=== PATIENT | male | born 1965 | race Caucasian/White ===

== ENCOUNTER 2016-11-21 09:13 | Inpatient (IN) | payer OTHER ==
--- NOTE | ~2016-11-21 | CN ---
Consultation Report [facility] [address] [place]. [address] NAME: MARTIR HERNANDEZ : 65 STATUS : ADM IN [facility]#: [id number] AGE: 51 ADM/REG DATE : 11/21/16 MR#: [id number] REPORT SERV DATE: 11/25/16 DICTATED BY: BRADY JEREZ DATE: 11/25/16 REPORT STATUS : Draft TRANSCRIBED BY: MODL DATE: 11/25/16 DATE OF CONSULTATION: INDICATIONS: Assistance in management of anticoagulation. 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 He had a bowel perforation requiring colostomy. He was admitted for colostomy takedown/reversal, which he underwent on 11/22/2016. He then had bleeding this morning, and went back to the emergency room. He has had acute kidney injury, the creatinine is now greater than 4, and his hemoglobin dropped from 13 to 6. 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 He is followed by a foundry worker general in [place] and was told he had a normally functioning valve by echo earlier this year. The patient is currently now extubated. Reports some abdominal discomfort, but no chest pain or shortness of breath. He understands his mitral valve to have had normal function in the past. PAST MEDICAL HISTORY: Bowel perforation. Mechanical mitral valve. Normal LV systolic function. SOCIAL HISTORY: No smoking. No alcohol. FAMILY HISTORY: Reviewed and noncontributory. ALLERGIES: NONE KNOWN. HOME MEDICATIONS: Warfarin 11 mg in the evening, and Sudafed. REVIEW OF SYSTEMS: As per the HPI. Otherwise, all other review of systems negative. PHYSICAL EXAMINATION: VITAL SIGNS: Blood pressure 110/70, heart rate is 105, respiratory rate is 18. GENERAL: Appears stated age, no distress. EYES: Sclerae anicteric, no arcus senilis. MOUTH: Oral mucosa moist, lips acyanotic. NECK: Jugular venous pressure normal, no carotid bruits. LUNGS: Clear to auscultation bilaterally, normal inspiratory effort. CARDIAC: Regular rhythm, mild tachycardia with crisp prosthetic heart sounds. ABDOMEN: Soft, nondistended, nontender. EXTREMITIES: No edema. SKIN: Warm and dry. NEURO/PSYCH: Alert and oriented, nonfocal, mood appropriate. LABORATORY DATA: Hemoglobin 6.8, to 13.7 on presentation; white count 13.4; platelets 170. Consultation Report [facility] [place]. [address] NAME: MARTIR HERNANDEZ : 65 STATUS : ADM IN [facility]#: [id number] AGE: 51 ADM/REG DATE : 11/21/16 MR#: [id number] REPORT SERV DATE: 11/25/16 DICTATED BY: BRADY JEREZ DATE: 11/25/16 REPORT STATUS : Draft TRANSCRIBED BY: LYNNE DATE: 11/25/16 INR 2.4. Potassium is 4.6. Creatinine 4.39. Telemetry is sinus tachycardia. IMPRESSION: 1. Status post colostomy reversal, now with hematoma evacuated with exploratory laparotomy and repair of colon. 2. Mechanical mitral gmgbxfdcqb-Nodet-Ssrkwsz-normal left ventricular systolic function. 3. Acute blood loss anemia. RECOMMENDATIONS: Replace red cells. Follow labs. Check INR in a.m. When surgical risk acceptable, would begin IV heparin low dose. Otherwise, if no additional surgery planned this admission, would consider resuming warfarin when acceptable from a surgical standpoint. We will follow. KOBE/LYNEN Brady Jerez M.D. / [id number] CC: Sreedhar Zamora M.D.
--- NOTE | ~2016-11-21 | OP ---
Record Of Operation [facility] [address] [place]. [address] NAME: GIN HERNANDEZ : 65 STATUS : ADM IN [facility]#: [id number] AGE: 51 ADM/REG DATE : 11/21/16 MR#: [id number] REPORT SERV DATE: 11/23/16 DICTATED BY: TED DICKINSON DATE: 11/22/16 REPORT STATUS : Draft TRANSCRIBED BY: MODL DATE: 11/22/16 DATE OF PROCEDURE: 11/22/2016 PREOPERATIVE DIAGNOSIS: History of Haleigh's procedure secondary to colonic perforation. POSTOPERATIVE DIAGNOSIS: History of Haleigh's procedure secondary to colonic perforation. PROCEDURE: Laparoscopic colostomy reversal. ATTENDING SURGEON: Dr. Dickinson. SURGEON: Chuyita Colunga M.D. ANESTHESIA: General. ESTIMATED BLOOD LOSS: 50 mL. COMPLICATIONS: None. SPECIMEN: None. DRAINS: None. IV FLUIDS: 1200 mL of crystalloid. INDICATION FOR PROCEDURE: Mr. Hernandez is a 51-year-old male, who previously underwent Haleigh's procedure for a colonic perforation in June of 2016. He presents to the operating room today for elective reversal of his colostomy. Risks and benefits of surgery were discussed with the patient in detail prior to proceeding, and he has elected to proceed. DESCRIPTION OF PROCEDURE: The patient was taken to the operating room, placed on the operating table in supine position. After induction of general anesthesia, time-out procedure was performed to ensure proper procedure and patient identification. The patient's colostomy site was closed using a purse-string suture. The abdomen was then prepped and draped in the usual sterile fashion. An elliptical skin incision was created at the colostomy site and dissected through the subcutaneous tissues using electrocautery. Once the colon was exposed and circumferentially dissected with Metzenbaum scissors down to the level of the posterior fascia circumferentially, the colon was freed from the fascia. Once adequately freed, it was reduced into the abdomen. The fascial edge was elevated. Local adhesions were lysed using Metzenbaum scissors. Once adequate clearance was obtained, a small wound retractor was placed through the old colostomy site and secured with a Pamela forceps prior to closure of the wound retractor. A 5 mm trocar was placed in the left upper quadrant. The abdomen was then insufflated. The patient was noted to have extensive adhesions throughout the remainder of the abdomen and multiple small bowel adhesions were lysed sharply using scissors to allow additional trocar placement. One additional 5 mm Record Of Operation [facility] [address] [place]. [address] NAME: GIN HERNANDEZ : 65 STATUS : ADM IN PAT#: [id number] AGE: 51 ADM/REG DATE : 11/21/16 MR#: [id number] REPORT SERV DATE: 11/23/16 DICTATED BY: TED DICKINSON DATE: 11/22/16 REPORT STATUS : Draft TRANSCRIBED BY: MODRobe DATE: 11/22/16 trocar was placed in the left lower quadrant to assist with lysis of adhesions. Once adequate clearance was obtained, two additional 5 mm trocars were also placed in the right side of the abdomen, the first in the right mid abdomen, second in the right lower quadrant. The colostomy site which had been reduced into the abdomen was elevated laterally. The white line of Toldt was sharply incised and the colon mobilized to the lateral sidewall. We then directed our attention to the patient's pelvis. The rectal stump was identified and mobilized. Once adequate mobilization of the colon to reach the rectal stump was achieved, anal dilators were passed up to a size of 29 mm without difficulty. At this time, we converted from laparoscopy back through our previous colostomy takedown site. Once again, the colonic end was reduced through the site. The end of the colon was excised sharply with scissors. A purse-string of Prolene suture was placed circumferentially and a 29 mm EEA anvil secured. Once adequately secured, this was reduced into the abdomen. The abdomen was once again insufflated. A 29 mm EEA stapling device was advanced into the rectum under laparoscopic visualization. The spike was deployed. The anvil was secured to the spike and closed. The anastomosis had excellent approximation without evidence of tension at this point, the stapler was fired and removed without difficulty. The donuts were examined and found to have two complete donut. Irrigation was then poured into the pelvis. Insufflation test using rigid sigmoidoscope was performed. There was no evidence of air leak. The scope was then removed. Hemostasis was assured. Prior to removal of the laparoscopic ports, the 5 mm trocars were removed. The abdomen was allowed to collapse. The port sites were visualized through the previous colostomy site and found to be hemostatic. We then proceeded with closure of the posterior fascia with a running 0 Prolene and the anterior fascia was then closed in similar fashion with a running 0 Prolene. A single Vicryl suture was placed in the mid point of the previous colostomy site. All skin incisions were closed with interrupted inverted 4-0 Monocryl and sterile dressings were applied. The patient tolerated the procedure well and was taken to the PACU in stable condition. DICTATED BY: Chuyita Colunga MD JR/LYNNE Sreedhar Dickinson M.D. / [id number] CC: Sreedhar Dickinson M.D.
--- NOTE | ~2016-11-21 | CN ---
Consultation Report [facility] [address] [place]. [address] NAME: GIN HERNANDEZ : 65 STATUS : ADM IN [facility]#: [id number] AGE: 51 ADM/REG DATE : 11/21/16 MR#: [id number] REPORT SERV DATE: 11/26/16 DICTATED BY: SUNNI CHANG DATE: 11/25/16 REPORT STATUS : Draft TRANSCRIBED BY: MODL DATE: 11/25/16 NEPHROLOGY CONSULTATION DATE OF CONSULTATION: 11/25/2016 INDICATION FOR CONSULTATION: Acute kidney injury. 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 He developed perforated viscus in 06/2016, complicated by intraabdominal abscess and has had some recurrent abscesses, requiring percutaneous drainage. He is on anticoagulation for prosthetic mitral valve, which has been in place since age 18, when he developed endocarditis. Following his ostomy reversal, he developed bleeding while on heparin and Coumadin and became hypotensive. His serum creatinine fernanda from 0.9 to 4.39 with decline in urine output, while his hemoglobin fell from 11.6 to 6.8. His systolic blood pressure was in the 80s. He has no symptoms and currently has Sapp catheter in place. He has had no exposure to nephrotoxic agents. PAST MEDICAL HISTORY: 1. 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 2. Perforated sigmoid colon with abdominal abscess in 06/2016 and subsequent percutaneous drainage of recurrent abdominal abscesses. 3. Remote left pleural effusion, requiring thoracentesis in 06/2016. 4. Postop respiratory failure, requiring vent support in 06/2016. 5. Anemia. SOCIAL HISTORY: He is with two children, ages 18 and 19. He is an emergency room physician. Uses no alcohol, tobacco products, or illicit drugs. FAMILY HISTORY: No renal failure. No colon cancer. REVIEW OF SYSTEMS: No shortness of breath, chest pain. Does have some lower abdominal discomfort. He has passed some flatus, following reversal of ostomy. No lower extremity edema, skin rash, seizure activity, or lateralizing weakness. Remainder of 12-point review of systems is negative. PHYSICAL EXAMINATION: GENERAL: Pleasant male, NG tube in place. Alert and appropriate response. VITAL SIGNS: Blood pressure 108/63, temperature 98.3 with T-max of 99, pulse 106, respiratory rate 17. HEENT: Eyes, no scleral icterus. Pupils equal, reactive to light. Extraocular movement intact. Nares with right nostril NG tube in place. No lesions. Throat, no injection. Mucous membranes moist. Consultation Report [place] [address] [facility] [place] [address] NAME: GIN HERNANDEZ : 65 STATUS : ADM IN [facility]#: [id number] AGE: 51 ADM/REG DATE : 11/21/16 MR#: [id number] REPORT SERV DATE: 11/26/16 DICTATED BY: SUNNI CHANG DATE: 11/25/16 REPORT STATUS : Draft TRANSCRIBED BY: LYNNE DATE: 11/25/16 NECK: No thyromegaly, masses, bruits. CHEST/LUNGS: Clear to auscultation and percussion. CARDIAC: Regular tachycardia. Prosthetic mitral valve click noted. No rub. ABDOMEN: Some lower abdominal tenderness. Bowel sounds decreased. No hepatosplenomegaly. : Indwelling Sapp. RECTAL: Not performed. EXTREMITIES: Trace edema. No calf tenderness. DERMIS: No rash. No skin lesions. MUSCULOSKELETAL: No deformity. NEUROLOGIC: Cranial nerves intact. No lateralizing weakness. IMPRESSION: 1. Acute kidney injury secondary to acute tubular necrosis related to shock from hemorrhage. 2. Postop hemorrhage while on Coumadin and heparin therapy for prosthetic mitral valve with acute blood loss anemia. 3. Prosthetic mitral valve, requiring anticoagulation. 4. Status post reversal of colostomy. 5. Remote perforation of sigmoid colon with abdominal abscess, 06/2016. PLAN: 1. Lab. 2. Bumex after first unit packed red blood cells if BP stable. 3. Avoid nephrotoxins. 4. We will follow. EBONY/LYNNE Sunni Chang M.D. / [id number] CC: Sreedhar Zamora M.D.
--- NOTE | ~2016-11-21 | OP ---
Record Of Operation [facility] [address] [place]. [address] NAME: GIN HERNANDEZ : 65 STATUS : ADM IN [facility]#: [id number] AGE: 51 ADM/REG DATE : 11/21/16 MR#: [id number] REPORT SERV DATE: 11/27/16 DICTATED BY: ACE GUTIERREZ DATE: 11/27/16 REPORT STATUS : Draft TRANSCRIBED BY: MODL DATE: 11/27/16 DATE OF PROCEDURE: 11/25/2016 PREOPERATIVE DIAGNOSIS: Abdominal bleed status post colostomy reversal. POSTOPERATIVE DIAGNOSIS: Abdominal bleed status post colostomy reversal. OPERATION PERFORMED: Exploratory laparotomy with evacuation of clot and ligation of small bleeding vessel from the left pelvic sidewall. SURGEON: Ace Gutierrez M.D. EL TEACHER: Patrice Valadez M.D. ESTIMATED BLOOD LOSS: 2 L of clot. ANESTHESIA: General endotracheal anesthesia. INDICATIONS FOR PROCEDURE: Mr. Hernandez is a 51-year-old, who is three days out from a colostomy reversal. He has an aortic valve that has been anticoagulated. He has developed an intraabdominal bleed. He is brought to the operating room today for evacuation of clot and surgical treatment of bleeding. DESCRIPTION OF OPERATION: After appropriate sedation, the patient was prepped and draped in proper sterile fashion. A lower midline incision was performed and a wound protector was placed in the abdomen. Upon entering the abdomen, there was a large amount of clot. This was gently evacuated. We then irrigated out the abdomen. We examined the right side of the abdomen and the abdominal wall where the previous trocars were placed. There was no evidence of bleeding. There was no evidence of bleeding from the previous colostomy site. We examined the mesentery. There was no evidence of bleeding. Along the left pelvic sidewall, however, just above the iliac vessels, there was a very small arterial bleed. This was suture ligated with a 3-0 silk suture. We then copiously irrigated out the abdomen. We looked for any evidence of further bleeding, there was none. At this point, I felt like our site of bleeding was found. We placed a 19-Dominican drain into the pelvis and brought up the right lateral sidewall. The fascia was closed using a running #1 looped PDS suture. The skin was closed using simone. Dressings were placed. The patient was taken to recovery room in satisfactory condition. HANNA/LYNNE Ace Gutierrez M.D. / [id number] Record Of [address] [address] NAME: GIN HERNANDEZ : 65 STATUS : ADM IN PAT#: [id number] AGE: 51 ADM/REG DATE : 11/21/16 MR#: [id number] REPORT SERV DATE: 11/27/16 DICTATED BY: ACE GUTIERREZ DATE: 11/27/16 REPORT STATUS : Draft TRANSCRIBED BY: LYNNE DATE: 11/27/16 CC: Sreedhar Zamora M.D.
--- NOTE | ~2016-11-21 | DS ---
Discharge Summary [facility] [address] [place]. [address] NAME: GIN HERNANDEZ : 65 STATUS : DIS IN PAT#: [id number] AGE: 51 ADM/REG DATE : 11/21/16 MR#: [id number] REPORT SERV DATE: 12/13/16 DICTATED BY: TED DICKINSON DATE: 12/13/16 REPORT STATUS : Draft TRANSCRIBED BY: MODRobe DATE: 12/13/16 Data Collection from hospitalization DISCHARGE DIAGNOSES: 1. History of Haleigh's procedure secondary to colonic perforation. 2. Anemia. 3. History of endocarditis with prosthetic mitral valve. CONSULTATIONS: 1. Brady Jerez M.D. 2. Ryan Edmonds M.D. PROCEDURES: 1. Laparoscopic colostomy reversal, 11/22/2016. 2. Exploratory laparotomy with evacuation of clot and ligation of small bleeding vessel from the left pelvic sidewall, 11/25/2016. 3. CT scan of the abdomen and pelvis without contrast, 11/25/2016. DISCHARGE MEDICATIONS: Coumadin 11 mg at bedtime. CONDITION ON DISCHARGE: Stable. DISPOSITION: The patient was discharged home on a regular diet with activities as instructed. He would follow up with me on 12/10/2016, and would follow up with Dr. Cervantes two to three days following discharge. HOSPITAL COURSE: This is a 51-year-old man who had previously undergone a Haleigh's procedure for colonic perforation in 06/2016. He was ready to proceed with elective reversal of his colostomy. He was admitted to the hospital at this time for further evaluation and treatment. Upon admission, he was taken to the operating room where he underwent the above-mentioned procedure. He tolerated this well. There were no complications. On postop day 1, his abdomen was distended. His incisions were clean, dry, and intact. Clear liquids were going to began. He was encouraged to mobilize. On 11/24/2016, he was awake and alert. He did complain of some nausea. NG tube had been in place. He had decreased urine output. Heparin was being held for now. Creatinine level increased. Urine output had decreased. His creatinine level was now 2.38. He was transfused. On 11/25/2016, he was seen in consultation by Dr. Ryan Edmonds. We have been asked to see the patient regarding acute kidney injury. He had no symptoms and currently, his Sapp catheter was in place. He has had no exposure to nephrotoxic agents. His acute kidney injury was felt secondary to acute tubular necrosis related to shock from hemorrhage. The patient had postop hemorrhage while on Coumadin and heparin therapy for prosthetic mitral valve with acute blood loss anemia. He has a history of perforation of the sigmoid colon with abdominal abscess in 06/2016. Bumex was going to be given after the first unit of packed red blood cells if his blood pressure was stable. We would avoid nephrotoxins. He was also seen by Dr. Brady Jerez for assistance in management of anticoagulation. The patient did report having some abdominal discomfort, but no chest pain or shortness of breath. INR level was 2.4. Discharge Summary [address] [address] NAME: GIN HERNANDEZ : 65 STATUS : DIS IN PAT#: [id number] AGE: 51 ADM/REG DATE : 11/21/16 MR#: [id number] REPORT SERV DATE: 12/13/16 DICTATED BY: TED DICKINSON DATE: 12/13/16 REPORT STATUS : Draft TRANSCRIBED BY: MODL DATE: 12/13/16 Potassium was 4.6. White count was 13.4. Red cells were replaced. When his surgical risk was acceptable, we would begin IV heparin at a low dose. If no additional surgery was planned during this admission, we would consider resuming warfarin when acceptable from a surgical standpoint. CT scan of the abdomen and pelvis without contrast was performed. The patient was three days out from his colostomy reversal. He had developed an intraabdominal bleed. It was felt that he would need to undergo evacuation of clots and surgical treatment of this bleeding. He was taken back to the operating room where he underwent the above- mentioned procedure by Dr. Gutierrez. He tolerated this well, and there were no complications. On 11/26/2016, INR level was 1.7. He said he had some rattling in his chest. He had no chest pain. It was felt that we would need to resume anticoagulation as soon as possible. He had no new complaints. The NG tube was still in place. Creatinine level was decreasing. He had good urine output. IV fluids were decreased. O2 saturation was 99% on 15 L. Sapp catheter was discontinued. Heparin was going to be restarted. We were also going to restart Coumadin. He had no complaints of chest pain or shortness of breath. Acute kidney injury was improving. A dose of Lasix was continued. On 11/28/2016, he had no new complaints. He was tolerating oral intake. We planned on increasing his heparin. INR level was 1.5. On 11/30, INR level was now therapeutic. He did have a bowel movement. His drain was going to be removed. Coumadin was continued. INR level was 1.3. He said he was feeling well. On 12/02, INR level was 1.8. He was in no acute distress. His abdomen was soft. He continued to progress. Discharge planning was performed. INR level was 2. On 12/04/2016, his vital signs were stable, and he was afebrile. His incisions were clean, dry, and intact. Discharge instructions were given. Due to his improved and stable condition, he was discharged home with the above-stated instructions. Information collected by: Dyan Jones I submit the above information as my discharge summary. TG/MODL Sreedhar Dickinson M.D. / [id number] CC: Noah Vogel M.D. Gregory Keith Bruce, M.D.
[~2016-11-21 09:13] MED LIST: AUG875 PO; COUMADIN10 MG PO; FERROUS GLUC324 MG PO; PERCOCET1 TA2 PO; ZOSYN375 IV
[2016-11-21 10:55] LABS: BASOPHILS 0.5 %; BASOPHILS ABSOLUTE 0.03 10/3/uL (0.0-0.16); EOSINOPHILS 1.8 %; IMMATURE GRANULOCYTES 0.2 %; IMMATURE GRANULOCYTES ABSOLUTE 0.01 10/3/uL (0.0-0.11); LYMPHOCYTES 19.7 %; MEAN CORPUSCULAR HEMOGLOB 28.6 pg (26.0-34.0); MEAN PLATELET VOLUME 10.5 fL (9.2-13.0); MONOCYTES 8.6 %; MONOCYTES ABSOLUTE 0.48 10/3/uL (0.21-1.20); NEUTROPHILS 69.2 %; NEUTROPHILS ABSOLUTE 3.86 10/3/uL (2.02-8.40); PLATELET COUNT 239 10/3/uL (150-400); RBC DISTRIBUTION WIDTH 14.3 % (12.0-16.0); WHITE BLOOD CELLS 5.6 10/3/uL (4.5-10.5)
[2016-11-21 10:57] LABS: HEMATOCRIT 40.3 % (40.0-51.0); HEMOGLOBIN 13.7 g/dL (13.6-17.8); MANUAL DIFF NO %; MEAN CORPUSCULAR VOLUME 84.1 fL (80-100); RED CELL COUNT 4.79 10/6/uL (4.7-6.1)
[2016-11-21 11:13] LABS: CALCIUM, SERUM 8.7 MG/DL (8.5-10.4); CHLORIDE, SERUM 108 MMOL/L (96-112); CO2 (CARBON DIOXIDE) 26 MMOL/L (24-34); CREATININE 0.97 MG/DL (0.70-1.30); GFR AFRICAN AMERICAN 104 ML/MIN (>=60); GFR NON AFRICAN AMERICAN 90 ML/MIN (>=60); GLUCOSE, SERUM 88 MG/DL (60-99); SODIUM, SERUM 139 MMOL/L (135-148)
[2016-11-21 11:14] LABS: BUN (BLOOD UREA NITROGEN) 18 MG/DL (6-23)
[2016-11-21 11:15] LABS: POTASSIUM, SERUM 5.1 MMOL/L (3.5-5.3)
[2016-11-21 12:42] LABS: PARTIAL THROMBO TIME 32.9 SEC (22.5-37.2)
[2016-11-21 12:43] LABS: PROTIME (NOT ORD) 22.3 SEC (12.0-14.5)
[2016-11-21] MEDS ORDERED: SUDAFED PO (15:23)
[2016-11-21] MEDS ORDERED: C1 PO (15:25)
[2016-11-22 03:29] LABS: BASOPHILS 0.5 %; BASOPHILS ABSOLUTE 0.02 10/3/uL (0.0-0.16); EOSINOPHILS 2.3 %; HEMATOCRIT 37.8 % (40.0-51.0); LYMPHOCYTES 29.2 %; LYMPHOCYTES ABSOLUTE 1.28 10/3/uL (0.67-4.30); MANUAL DIFF NO %; MEAN CORPUS HGB CONC 34.4 g/dL (32.0-36.0); MEAN CORPUSCULAR HEMOGLOB 28.5 pg (26.0-34.0); MEAN CORPUSCULAR VOLUME 82.9 fL (80-100); MEAN PLATELET VOLUME 10.3 fL (9.2-13.0); MONOCYTES ABSOLUTE 0.44 10/3/uL (0.21-1.20); NEUTROPHILS ABSOLUTE 2.55 10/3/uL (2.02-8.40); PLATELET COUNT 213 10/3/uL (150-400); RBC DISTRIBUTION WIDTH 14.3 % (12.0-16.0); RED CELL COUNT 4.56 10/6/uL (4.7-6.1); WHITE BLOOD CELLS 4.4 10/3/uL (4.5-10.5)
[2016-11-22 03:43] LABS: CALCIUM, SERUM 8.4 MG/DL (8.5-10.4); CHLORIDE, SERUM 108 MMOL/L (96-112); CO2 (CARBON DIOXIDE) 27 MMOL/L (24-34); CREATININE 0.91 MG/DL (0.70-1.30); GFR AFRICAN AMERICAN 113 ML/MIN (>=60); GFR NON AFRICAN AMERICAN 97 ML/MIN (>=60); GLUCOSE, SERUM 91 MG/DL (60-99); SODIUM, SERUM 143 MMOL/L (135-148)
[2016-11-22 03:44] LABS: BUN (BLOOD UREA NITROGEN) 12 MG/DL (6-23); POTASSIUM, SERUM 3.7 MMOL/L (3.5-5.3)
[2016-11-23 06:16] LABS: BASOPHILS 0.1 %; BASOPHILS ABSOLUTE 0.01 10/3/uL (0.0-0.16); EOSINOPHILS 0 %; HEMOGLOBIN 11.6 g/dL (13.6-17.8); IMMATURE GRANULOCYTES 0.2 %; IMMATURE GRANULOCYTES ABSOLUTE 0.04 10/3/uL (0.0-0.11); LYMPHOCYTES 3.9 %; MEAN CORPUS HGB CONC 34.3 g/dL (32.0-36.0); MEAN CORPUSCULAR HEMOGLOB 28.8 pg (26.0-34.0); MEAN CORPUSCULAR VOLUME 83.9 fL (80-100); MEAN PLATELET VOLUME 10.7 fL (9.2-13.0); MONOCYTES ABSOLUTE 1.09 10/3/uL (0.21-1.20); NEUTROPHILS 89.8 %; NEUTROPHILS ABSOLUTE 16.22 10/3/uL (2.02-8.40); PLATELET COUNT 259 10/3/uL (150-400); RBC DISTRIBUTION WIDTH 14.1 % (12.0-16.0); RED CELL COUNT 4.03 10/6/uL (4.7-6.1)
[2016-11-23 06:17] LABS: HEMATOCRIT 33.8 % (40.0-51.0); MANUAL DIFF NO %; WHITE BLOOD CELLS 18.1 10/3/uL (4.5-10.5)
[2016-11-23 06:27] LABS: INTERNATIONAL NORMAL RATI 1.3 UNITS (-)
[2016-11-23 06:29] LABS: PARTIAL THROMBO TIME 87.5 SEC (22.5-37.2); PROTIME (NOT ORD) 16.5 SEC (12.0-14.5)
[2016-11-23 06:36] LABS: BUN (BLOOD UREA NITROGEN) 13 MG/DL (6-23); CALCIUM, SERUM 8.1 MG/DL (8.5-10.4); CHLORIDE, SERUM 103 MMOL/L (96-112); CO2 (CARBON DIOXIDE) 26 MMOL/L (24-34); CREATININE 0.91 MG/DL (0.70-1.30); GFR AFRICAN AMERICAN 113 ML/MIN (>=60); GFR NON AFRICAN AMERICAN 97 ML/MIN (>=60); POTASSIUM, SERUM 4.1 MMOL/L (3.5-5.3); SODIUM, SERUM 141 MMOL/L (135-148)
[2016-11-23 06:40] LABS: GLUCOSE, SERUM 166 MG/DL (60-99)
[2016-11-24 08:17] LABS: BASOPHILS 0 %; BASOPHILS ABSOLUTE 0.01 10/3/uL (0.0-0.16); EOSINOPHILS 0 %; IMMATURE GRANULOCYTES 0.4 %; IMMATURE GRANULOCYTES ABSOLUTE 0.08 10/3/uL (0.0-0.11); LYMPHOCYTES 3.3 %; LYMPHOCYTES ABSOLUTE 0.67 10/3/uL (0.67-4.30); MEAN CORPUS HGB CONC 33.5 g/dL (32.0-36.0); MEAN CORPUSCULAR HEMOGLOB 28.7 pg (26.0-34.0); MEAN CORPUSCULAR VOLUME 85.7 fL (80-100); MEAN PLATELET VOLUME 10.9 fL (9.2-13.0); MONOCYTES 6.6 %; MONOCYTES ABSOLUTE 1.35 10/3/uL (0.21-1.20); NEUTROPHILS 89.7 %; NEUTROPHILS ABSOLUTE 18.38 10/3/uL (2.02-8.40); PLATELET COUNT 252 10/3/uL (150-400); RBC DISTRIBUTION WIDTH 14.5 % (12.0-16.0); WHITE BLOOD CELLS 20.5 10/3/uL (4.5-10.5)
[2016-11-24 08:20] LABS: HEMATOCRIT 23.9 % (40.0-51.0); MANUAL DIFF NO %; RED CELL COUNT 2.79 10/6/uL (4.7-6.1)
[2016-11-24 08:23] LABS: INTERNATIONAL NORMAL RATI 1.9 UNITS (-)
[2016-11-24 08:26] LABS: PROTIME (NOT ORD) 21.7 SEC (12.0-14.5)
[2016-11-24 08:30] LABS: CALCIUM, SERUM 7.8 MG/DL (8.5-10.4); CHLORIDE, SERUM 105 MMOL/L (96-112); CO2 (CARBON DIOXIDE) 22 MMOL/L (24-34); POTASSIUM, SERUM 4.1 MMOL/L (3.5-5.3); SODIUM, SERUM 141 MMOL/L (135-148)
[2016-11-24 08:31] LABS: BUN (BLOOD UREA NITROGEN) 17 MG/DL (6-23); CREATININE 2.38 MG/DL (0.70-1.30); GFR AFRICAN AMERICAN 35 ML/MIN (>=60); GFR NON AFRICAN AMERICAN 30 ML/MIN (>=60); GLUCOSE, SERUM 214 MG/DL (60-99)
[2016-11-24 13:20] LABS: CALCIUM, SERUM 7.3 MG/DL (8.5-10.4); CHLORIDE, SERUM 104 MMOL/L (96-112); CO2 (CARBON DIOXIDE) 24 MMOL/L (24-34); GFR AFRICAN AMERICAN 26 ML/MIN (>=60); GFR NON AFRICAN AMERICAN 22 ML/MIN (>=60); GLUCOSE, SERUM 225 MG/DL (60-99); POTASSIUM, SERUM 4.2 MMOL/L (3.5-5.3); SODIUM, SERUM 141 MMOL/L (135-148)
[2016-11-24 13:21] LABS: BUN (BLOOD UREA NITROGEN) 21 MG/DL (6-23); CREATININE 3.11 MG/DL (0.70-1.30)
[2016-11-25 00:12] LABS: HEMOGLOBIN 7.9 g/dL (13.6-17.8)
[2016-11-25 00:18] LABS: HEMATOCRIT 22.1 % (40.0-51.0)
[2016-11-25 05:07] LABS: BASOPHILS 0.1 %; BASOPHILS ABSOLUTE 0.01 10/3/uL (0.0-0.16); EOSINOPHILS 0 %; IMMATURE GRANULOCYTES 0.2 %; IMMATURE GRANULOCYTES ABSOLUTE 0.03 10/3/uL (0.0-0.11); LYMPHOCYTES 11.7 %; LYMPHOCYTES ABSOLUTE 1.57 10/3/uL (0.67-4.30); MEAN CORPUS HGB CONC 34.2 g/dL (32.0-36.0); MEAN CORPUSCULAR HEMOGLOB 28.8 pg (26.0-34.0); MEAN CORPUSCULAR VOLUME 84.3 fL (80-100); MEAN PLATELET VOLUME 10.8 fL (9.2-13.0); MONOCYTES 7.3 %; MONOCYTES ABSOLUTE 0.98 10/3/uL (0.21-1.20); NEUTROPHILS 80.7 %; NEUTROPHILS ABSOLUTE 10.78 10/3/uL (2.02-8.40); RBC DISTRIBUTION WIDTH 14.8 % (12.0-16.0); RED CELL COUNT 2.36 10/6/uL (4.7-6.1); WHITE BLOOD CELLS 13.4 10/3/uL (4.5-10.5)
[2016-11-25 05:08] LABS: HEMOGLOBIN 6.8 g/dL (13.6-17.8)
[2016-11-25 05:09] LABS: HEMATOCRIT 19.9 % (40.0-51.0); PLATELET COUNT 170 10/3/uL (150-400)
[2016-11-25 05:10] LABS: MANUAL DIFF NO %
[2016-11-25 05:14] LABS: INTERNATIONAL NORMAL RATI 2.4 UNITS (-); PARTIAL THROMBO TIME 35.8 SEC (22.5-37.2)
[2016-11-25 05:19] LABS: PROTIME (NOT ORD) 25.6 SEC (12.0-14.5)
[2016-11-25 05:29] LABS: BUN (BLOOD UREA NITROGEN) 29 MG/DL (6-23); CALCIUM, SERUM 7.2 MG/DL (8.5-10.4); CHLORIDE, SERUM 105 MMOL/L (96-112); CO2 (CARBON DIOXIDE) 25 MMOL/L (24-34); CREATININE 4.39 MG/DL (0.70-1.30); GFR AFRICAN AMERICAN 17 ML/MIN (>=60); GFR NON AFRICAN AMERICAN 15 ML/MIN (>=60); GLUCOSE, SERUM 125 MG/DL (60-99); POTASSIUM, SERUM 4.6 MMOL/L (3.5-5.3); SODIUM, SERUM 141 MMOL/L (135-148)
[2016-11-25 11:06] LABS: MICROALBUMIN, RANDOM URINE 32.9 MG/DL
[2016-11-25 12:45] LABS: BASOPHILS 0.1 %; BASOPHILS ABSOLUTE 0.01 10/3/uL (0.0-0.16); EOSINOPHILS 0.1 %; EOSINOPHILS ABSOLUTE 0.01 10/3/uL (0.0-0.53); HEMATOCRIT 21.5 % (40.0-51.0); HEMOGLOBIN 7.6 g/dL (13.6-17.8); IMMATURE GRANULOCYTES 0.3 %; IMMATURE GRANULOCYTES ABSOLUTE 0.03 10/3/uL (0.0-0.11); LYMPHOCYTES 6.9 %; LYMPHOCYTES ABSOLUTE 0.66 10/3/uL (0.67-4.30); MEAN CORPUS HGB CONC 35.3 g/dL (32.0-36.0); MEAN CORPUSCULAR HEMOGLOB 30.3 pg (26.0-34.0); MEAN CORPUSCULAR VOLUME 85.7 fL (80-100); MEAN PLATELET VOLUME 10.5 fL (9.2-13.0); MONOCYTES 7.1 %; MONOCYTES ABSOLUTE 0.68 10/3/uL (0.21-1.20); NEUTROPHILS 85.5 %; PLATELET COUNT 131 10/3/uL (150-400); RBC DISTRIBUTION WIDTH 14.9 % (12.0-16.0); RED CELL COUNT 2.51 10/6/uL (4.7-6.1); WHITE BLOOD CELLS 9.6 10/3/uL (4.5-10.5)
[2016-11-25 12:47] LABS: MANUAL DIFF NO %
[2016-11-25 12:51] LABS: BUN (BLOOD UREA NITROGEN) 30 MG/DL (6-23); CALCIUM, SERUM 7.2 MG/DL (8.5-10.4); CHLORIDE, SERUM 109 MMOL/L (96-112); CO2 (CARBON DIOXIDE) 28 MMOL/L (24-34); GFR AFRICAN AMERICAN 21 ML/MIN (>=60); GFR NON AFRICAN AMERICAN 18 ML/MIN (>=60); GLUCOSE, SERUM 120 MG/DL (60-99); POTASSIUM, SERUM 4.2 MMOL/L (3.5-5.3); SODIUM, SERUM 145 MMOL/L (135-148)
[2016-11-25 12:52] LABS: CREATININE 3.72 MG/DL (0.70-1.30)
[2016-11-25 13:15] LABS: PARTIAL THROMBO TIME 38.2 SEC (22.5-37.2); PROTIME (NOT ORD) 22.4 SEC (12.0-14.5)
[2016-11-25 17:28] LABS: BASOPHILS 0 %; EOSINOPHILS 0 %; IMMATURE GRANULOCYTES 0.2 %; IMMATURE GRANULOCYTES ABSOLUTE 0.02 10/3/uL (0.0-0.11); LYMPHOCYTES 2.3 %; LYMPHOCYTES ABSOLUTE 0.19 10/3/uL (0.67-4.30); MEAN CORPUS HGB CONC 35.6 g/dL (32.0-36.0); MEAN CORPUSCULAR HEMOGLOB 30.4 pg (26.0-34.0); MEAN CORPUSCULAR VOLUME 85.5 fL (80-100); MEAN PLATELET VOLUME 10.6 fL (9.2-13.0); MONOCYTES 7.2 %; NEUTROPHILS 90.3 %; NEUTROPHILS ABSOLUTE 7.49 10/3/uL (2.02-8.40); PLATELET COUNT 120 10/3/uL (150-400); RBC DISTRIBUTION WIDTH 14.5 % (12.0-16.0); RED CELL COUNT 2.96 10/6/uL (4.7-6.1); WHITE BLOOD CELLS 8.3 10/3/uL (4.5-10.5)
[2016-11-25 17:29] LABS: HEMATOCRIT 25.3 % (40.0-51.0); MANUAL DIFF NO %
[2016-11-25 17:35] LABS: INTERNATIONAL NORMAL RATI 1.6 UNITS (-)
[2016-11-25 17:37] LABS: PROTIME (NOT ORD) 18.5 SEC (12.0-14.5)
[2016-11-25 17:43] LABS: BUN (BLOOD UREA NITROGEN) 30 MG/DL (6-23); CALCIUM, SERUM 7.6 MG/DL (8.5-10.4); CHLORIDE, SERUM 103 MMOL/L (96-112); CO2 (CARBON DIOXIDE) 31 MMOL/L (24-34); CREATININE 3.53 MG/DL (0.70-1.30); GFR AFRICAN AMERICAN 22 ML/MIN (>=60); GFR NON AFRICAN AMERICAN 19 ML/MIN (>=60); GLUCOSE, SERUM 115 MG/DL (60-99); PHOSPHORUS, SERUM 3.4 MG/DL (2.5-4.5); POTASSIUM, SERUM 4.1 MMOL/L (3.5-5.3); SGOT(AST) 21 U/L (5-40); SGPT(ALT) 16 U/L (5-65); SODIUM, SERUM 144 MMOL/L (135-148)
[2016-11-25 17:45] LABS: A/G RATIO 0.9 (0.7-1.9); ALBUMIN 2.8 G/DL (3.5-5.0); ALKALINE PHOSPHATASE 51 U/L (45-117); GLOBULIN 3.2 G/DL (2.5-4.1); TOTAL BILIRUBIN 1.1 MG/DL (0-1.2)
[2016-11-26 03:26] LABS: BASOPHILS 0 %; EOSINOPHILS 0 %; HEMATOCRIT 23.3 % (40.0-51.0); HEMOGLOBIN 8.3 g/dL (13.6-17.8); IMMATURE GRANULOCYTES 0.2 %; IMMATURE GRANULOCYTES ABSOLUTE 0.01 10/3/uL (0.0-0.11); LYMPHOCYTES 9.2 %; LYMPHOCYTES ABSOLUTE 0.57 10/3/uL (0.67-4.30); MEAN CORPUS HGB CONC 35.6 g/dL (32.0-36.0); MEAN CORPUSCULAR VOLUME 86.9 fL (80-100); MONOCYTES 10.6 %; MONOCYTES ABSOLUTE 0.66 10/3/uL (0.21-1.20); NEUTROPHILS ABSOLUTE 4.97 10/3/uL (2.02-8.40); PLATELET COUNT 122 10/3/uL (150-400); RBC DISTRIBUTION WIDTH 14.7 % (12.0-16.0); RED CELL COUNT 2.68 10/6/uL (4.7-6.1); WHITE BLOOD CELLS 6.2 10/3/uL (4.5-10.5)
[2016-11-26 03:42] LABS: MANUAL DIFF NO %
[2016-11-26 03:48] LABS: ALBUMIN 2.7 G/DL (3.5-5.0); BUN (BLOOD UREA NITROGEN) 30 MG/DL (6-23); CALCIUM, SERUM 7.5 MG/DL (8.5-10.4); CHLORIDE, SERUM 102 MMOL/L (96-112); CO2 (CARBON DIOXIDE) 32 MMOL/L (24-34); GFR AFRICAN AMERICAN 28 ML/MIN (>=60); GFR NON AFRICAN AMERICAN 24 ML/MIN (>=60); GLUCOSE, SERUM 111 MG/DL (60-99); PHOSPHORUS, SERUM 2.9 MG/DL (2.5-4.5); POTASSIUM, SERUM 3.8 MMOL/L (3.5-5.3); SODIUM, SERUM 143 MMOL/L (135-148)
[2016-11-26 03:50] LABS: CREATININE 2.89 MG/DL (0.70-1.30)
[2016-11-26 03:59] LABS: INTERNATIONAL NORMAL RATI 1.7 UNITS (-); PROTIME (NOT ORD) 19.5 SEC (12.0-14.5)
[2016-11-26 04:12] LABS: PROCALCITONIN 0.23 ng/mL (<0.5)
[2016-11-26 14:42] LABS: HEMATOCRIT 24.3 % (40.0-51.0); HEMOGLOBIN 8.4 g/dL (13.6-17.8)
[2016-11-26 15:41] LABS: BUN (BLOOD UREA NITROGEN) 31 MG/DL (6-23); CALCIUM, SERUM 7.7 MG/DL (8.5-10.4); CHLORIDE, SERUM 99 MMOL/L (96-112); CO2 (CARBON DIOXIDE) 34 MMOL/L (24-34); POTASSIUM, SERUM 4.2 MMOL/L (3.5-5.3); SODIUM, SERUM 140 MMOL/L (135-148)
[2016-11-26 15:42] LABS: CREATININE 2.18 MG/DL (0.70-1.30); GFR AFRICAN AMERICAN 39 ML/MIN (>=60); GFR NON AFRICAN AMERICAN 34 ML/MIN (>=60); GLUCOSE, SERUM 88 MG/DL (60-99)
[2016-11-26 18:58] LABS: BASOPHILS 0 %; EOSINOPHILS 0.1 %; EOSINOPHILS ABSOLUTE 0.01 10/3/uL (0.0-0.53); HEMOGLOBIN 8.7 g/dL (13.6-17.8); LYMPHOCYTES 5.4 %; LYMPHOCYTES ABSOLUTE 0.48 10/3/uL (0.67-4.30); MANUAL DIFF NO %; MEAN CORPUS HGB CONC 34.8 g/dL (32.0-36.0); MEAN CORPUSCULAR HEMOGLOB 30.6 pg (26.0-34.0); MEAN PLATELET VOLUME 10.1 fL (9.2-13.0); MONOCYTES 6.9 %; MONOCYTES ABSOLUTE 0.61 10/3/uL (0.21-1.20); NEUTROPHILS 87.6 %; NEUTROPHILS ABSOLUTE 7.77 10/3/uL (2.02-8.40); PLATELET COUNT 150 10/3/uL (150-400); RBC DISTRIBUTION WIDTH 14.8 % (12.0-16.0); RED CELL COUNT 2.84 10/6/uL (4.7-6.1); WHITE BLOOD CELLS 8.9 10/3/uL (4.5-10.5)
[2016-11-26 19:11] LABS: BUN (BLOOD UREA NITROGEN) 30 MG/DL (6-23); CHLORIDE, SERUM 99 MMOL/L (96-112); CO2 (CARBON DIOXIDE) 35 MMOL/L (24-34); CREATININE 2.09 MG/DL (0.70-1.30); GFR AFRICAN AMERICAN 41 ML/MIN (>=60); GFR NON AFRICAN AMERICAN 36 ML/MIN (>=60); GLUCOSE, SERUM 96 MG/DL (60-99); POTASSIUM, SERUM 4.1 MMOL/L (3.5-5.3); SODIUM, SERUM 139 MMOL/L (135-148)
[2016-11-26 22:46] LABS: BUN (BLOOD UREA NITROGEN) 30 MG/DL (6-23); CHLORIDE, SERUM 95 MMOL/L (96-112); CO2 (CARBON DIOXIDE) 35 MMOL/L (24-34); CREATININE 1.97 MG/DL (0.70-1.30); GFR AFRICAN AMERICAN 44 ML/MIN (>=60); GFR NON AFRICAN AMERICAN 38 ML/MIN (>=60); GLUCOSE, SERUM 87 MG/DL (60-99); POTASSIUM, SERUM 3.8 MMOL/L (3.5-5.3); SODIUM, SERUM 138 MMOL/L (135-148)
[2016-11-27 05:03] LABS: BASOPHILS 0 %; EOSINOPHILS 0.7 %; EOSINOPHILS ABSOLUTE 0.05 10/3/uL (0.0-0.53); HEMATOCRIT 26.4 % (40.0-51.0); IMMATURE GRANULOCYTES 0.1 %; IMMATURE GRANULOCYTES ABSOLUTE 0.01 10/3/uL (0.0-0.11); LYMPHOCYTES 8.6 %; LYMPHOCYTES ABSOLUTE 0.62 10/3/uL (0.67-4.30); MEAN CORPUS HGB CONC 34.1 g/dL (32.0-36.0); MEAN CORPUSCULAR HEMOGLOB 30.2 pg (26.0-34.0); MEAN CORPUSCULAR VOLUME 88.6 fL (80-100); MEAN PLATELET VOLUME 10.3 fL (9.2-13.0); MONOCYTES 8.1 %; MONOCYTES ABSOLUTE 0.59 10/3/uL (0.21-1.20); NEUTROPHILS 82.5 %; NEUTROPHILS ABSOLUTE 5.98 10/3/uL (2.02-8.40); PLATELET COUNT 180 10/3/uL (150-400); RBC DISTRIBUTION WIDTH 14.6 % (12.0-16.0); RED CELL COUNT 2.98 10/6/uL (4.7-6.1); WHITE BLOOD CELLS 7.3 10/3/uL (4.5-10.5)
[2016-11-27 05:06] LABS: MANUAL DIFF NO %
[2016-11-27 05:12] LABS: INTERNATIONAL NORMAL RATI 1.6 UNITS (-); PROTIME (NOT ORD) 19.1 SEC (12.0-14.5)
[2016-11-27 05:13] LABS: PARTIAL THROMBO TIME 43.5 SEC (22.5-37.2)
[2016-11-27 05:24] LABS: A/G RATIO 0.7 (0.7-1.9); ALBUMIN 2.6 G/DL (3.5-5.0); ALKALINE PHOSPHATASE 57 U/L (45-117); BUN (BLOOD UREA NITROGEN) 30 MG/DL (6-23); CHLORIDE, SERUM 98 MMOL/L (96-112); CO2 (CARBON DIOXIDE) 33 MMOL/L (24-34); CREATININE 1.65 MG/DL (0.70-1.30); GFR AFRICAN AMERICAN 55 ML/MIN (>=60); GFR NON AFRICAN AMERICAN 47 ML/MIN (>=60); GLUCOSE, SERUM 84 MG/DL (60-99); PHOSPHORUS, SERUM 2.8 MG/DL (2.5-4.5); SGOT(AST) 17 U/L (5-40); SGPT(ALT) 12 U/L (5-65); SODIUM, SERUM 137 MMOL/L (135-148); TOTAL PROTEIN 6.5 G/DL (6.0-8.5)
[2016-11-27 05:38] LABS: GLOBULIN 3.9 G/DL (2.5-4.1)
[2016-11-28 04:44] LABS: BASOPHILS 0.2 %; BASOPHILS ABSOLUTE 0.01 10/3/uL (0.0-0.16); EOSINOPHILS 2.5 %; EOSINOPHILS ABSOLUTE 0.14 10/3/uL (0.0-0.53); HEMATOCRIT 25.4 % (40.0-51.0); HEMOGLOBIN 8.8 g/dL (13.6-17.8); IMMATURE GRANULOCYTES 0.2 %; IMMATURE GRANULOCYTES ABSOLUTE 0.01 10/3/uL (0.0-0.11); LYMPHOCYTES 11.4 %; LYMPHOCYTES ABSOLUTE 0.65 10/3/uL (0.67-4.30); MEAN CORPUS HGB CONC 34.6 g/dL (32.0-36.0); MEAN CORPUSCULAR HEMOGLOB 30.4 pg (26.0-34.0); MEAN CORPUSCULAR VOLUME 87.9 fL (80-100); MEAN PLATELET VOLUME 9.8 fL (9.2-13.0); MONOCYTES 9.7 %; MONOCYTES ABSOLUTE 0.55 10/3/uL (0.21-1.20); NEUTROPHILS ABSOLUTE 4.32 10/3/uL (2.02-8.40); PLATELET COUNT 201 10/3/uL (150-400); RBC DISTRIBUTION WIDTH 14.1 % (12.0-16.0); RED CELL COUNT 2.89 10/6/uL (4.7-6.1); WHITE BLOOD CELLS 5.7 10/3/uL (4.5-10.5)
[2016-11-28 04:46] LABS: MANUAL DIFF NO %
[2016-11-28 04:56] LABS: INTERNATIONAL NORMAL RATI 1.5 UNITS (-); PARTIAL THROMBO TIME 38.4 SEC (22.5-37.2); PROTIME (NOT ORD) 17.5 SEC (12.0-14.5)
[2016-11-28 04:58] LABS: BUN (BLOOD UREA NITROGEN) 27 MG/DL (6-23); CALCIUM, SERUM 8.3 MG/DL (8.5-10.4); CHLORIDE, SERUM 100 MMOL/L (96-112); CO2 (CARBON DIOXIDE) 30 MMOL/L (24-34); CREATININE 1.16 MG/DL (0.70-1.30); GFR AFRICAN AMERICAN 84 ML/MIN (>=60); GFR NON AFRICAN AMERICAN 73 ML/MIN (>=60); GLUCOSE, SERUM 98 MG/DL (60-99); POTASSIUM, SERUM 3.9 MMOL/L (3.5-5.3); SODIUM, SERUM 138 MMOL/L (135-148)
[2016-11-29 04:44] LABS: BASOPHILS 0.2 %; BASOPHILS ABSOLUTE 0.01 10/3/uL (0.0-0.16); EOSINOPHILS 3.5 %; EOSINOPHILS ABSOLUTE 0.18 10/3/uL (0.0-0.53); HEMATOCRIT 26.2 % (40.0-51.0); HEMOGLOBIN 8.9 g/dL (13.6-17.8); IMMATURE GRANULOCYTES 0.2 %; IMMATURE GRANULOCYTES ABSOLUTE 0.01 10/3/uL (0.0-0.11); LYMPHOCYTES 11.5 %; MEAN CORPUSCULAR HEMOGLOB 30.3 pg (26.0-34.0); MEAN CORPUSCULAR VOLUME 89.1 fL (80-100); MEAN PLATELET VOLUME 10.2 fL (9.2-13.0); MONOCYTES 11.7 %; MONOCYTES ABSOLUTE 0.61 10/3/uL (0.21-1.20); NEUTROPHILS 72.9 %; PLATELET COUNT 244 10/3/uL (150-400); RED CELL COUNT 2.94 10/6/uL (4.7-6.1); WHITE BLOOD CELLS 5.2 10/3/uL (4.5-10.5)
[2016-11-29 04:48] LABS: INTERNATIONAL NORMAL RATI 1.2 UNITS (-); MANUAL DIFF NO %; PROTIME (NOT ORD) 15.2 SEC (12.0-14.5)
[2016-11-29 04:49] LABS: PARTIAL THROMBO TIME 48.2 SEC (22.5-37.2)
[2016-11-29 05:06] LABS: CALCIUM, SERUM 8.4 MG/DL (8.5-10.4); CHLORIDE, SERUM 104 MMOL/L (96-112); CO2 (CARBON DIOXIDE) 27 MMOL/L (24-34); CREATININE 1.14 MG/DL (0.70-1.30); GFR AFRICAN AMERICAN 86 ML/MIN (>=60); GFR NON AFRICAN AMERICAN 74 ML/MIN (>=60); GLUCOSE, SERUM 104 MG/DL (60-99); SODIUM, SERUM 139 MMOL/L (135-148)
[2016-11-29 05:09] LABS: BUN (BLOOD UREA NITROGEN) 23 MG/DL (6-23)
[2016-11-30 07:23] LABS: BASOPHILS 0.2 %; BASOPHILS ABSOLUTE 0.01 10/3/uL (0.0-0.16); EOSINOPHILS 4.3 %; EOSINOPHILS ABSOLUTE 0.19 10/3/uL (0.0-0.53); HEMATOCRIT 26.9 % (40.0-51.0); HEMOGLOBIN 9.1 g/dL (13.6-17.8); IMMATURE GRANULOCYTES 0.2 %; IMMATURE GRANULOCYTES ABSOLUTE 0.01 10/3/uL (0.0-0.11); LYMPHOCYTES 19.5 %; LYMPHOCYTES ABSOLUTE 0.87 10/3/uL (0.67-4.30); MEAN CORPUS HGB CONC 33.8 g/dL (32.0-36.0); MEAN CORPUSCULAR HEMOGLOB 30.1 pg (26.0-34.0); MEAN CORPUSCULAR VOLUME 89.1 fL (80-100); MEAN PLATELET VOLUME 9.9 fL (9.2-13.0); MONOCYTES 11.4 %; MONOCYTES ABSOLUTE 0.51 10/3/uL (0.21-1.20); NEUTROPHILS 64.4 %; NEUTROPHILS ABSOLUTE 2.87 10/3/uL (2.02-8.40); PLATELET COUNT 282 10/3/uL (150-400); RBC DISTRIBUTION WIDTH 14.1 % (12.0-16.0); RED CELL COUNT 3.02 10/6/uL (4.7-6.1); WHITE BLOOD CELLS 4.5 10/3/uL (4.5-10.5)
[2016-11-30 07:25] LABS: MANUAL DIFF NO %
[2016-11-30 07:29] LABS: INTERNATIONAL NORMAL RATI 1.3 UNITS (-); PROTIME (NOT ORD) 16.1 SEC (12.0-14.5)
[2016-11-30 07:31] LABS: PARTIAL THROMBO TIME 102.8 SEC (22.5-37.2)
[2016-11-30 07:32] LABS: BUN (BLOOD UREA NITROGEN) 20 MG/DL (6-23); CALCIUM, SERUM 8.2 MG/DL (8.5-10.4); CHLORIDE, SERUM 104 MMOL/L (96-112); CO2 (CARBON DIOXIDE) 27 MMOL/L (24-34); CREATININE 1.07 MG/DL (0.70-1.30); GFR AFRICAN AMERICAN 93 ML/MIN (>=60); GFR NON AFRICAN AMERICAN 80 ML/MIN (>=60); GLUCOSE, SERUM 92 MG/DL (60-99); POTASSIUM, SERUM 3.7 MMOL/L (3.5-5.3); SODIUM, SERUM 141 MMOL/L (135-148)
[2016-12-01 03:15] LABS: BASOPHILS 0.4 %; BASOPHILS ABSOLUTE 0.02 10/3/uL (0.0-0.16); EOSINOPHILS 4.1 %; EOSINOPHILS ABSOLUTE 0.22 10/3/uL (0.0-0.53); HEMATOCRIT 25.1 % (40.0-51.0); HEMOGLOBIN 8.6 g/dL (13.6-17.8); IMMATURE GRANULOCYTES 0.4 %; IMMATURE GRANULOCYTES ABSOLUTE 0.02 10/3/uL (0.0-0.11); LYMPHOCYTES 21.7 %; LYMPHOCYTES ABSOLUTE 1.15 10/3/uL (0.67-4.30); MEAN CORPUS HGB CONC 34.3 g/dL (32.0-36.0); MEAN CORPUSCULAR HEMOGLOB 30.4 pg (26.0-34.0); MEAN CORPUSCULAR VOLUME 88.7 fL (80-100); MONOCYTES 10.2 %; MONOCYTES ABSOLUTE 0.54 10/3/uL (0.21-1.20); NEUTROPHILS 63.2 %; NEUTROPHILS ABSOLUTE 3.36 10/3/uL (2.02-8.40); PLATELET COUNT 299 10/3/uL (150-400); RBC DISTRIBUTION WIDTH 14.4 % (12.0-16.0); RED CELL COUNT 2.83 10/6/uL (4.7-6.1); WHITE BLOOD CELLS 5.3 10/3/uL (4.5-10.5)
[2016-12-01 03:18] LABS: MANUAL DIFF NO %
[2016-12-01 03:25] LABS: INTERNATIONAL NORMAL RATI 1.5 UNITS (-); PROTIME (NOT ORD) 17.8 SEC (12.0-14.5)
[2016-12-01 03:26] LABS: PARTIAL THROMBO TIME 67.2 SEC (22.5-37.2)
[2016-12-02 05:47] LABS: BASOPHILS 0.6 %; BASOPHILS ABSOLUTE 0.03 10/3/uL (0.0-0.16); EOSINOPHILS ABSOLUTE 0.14 10/3/uL (0.0-0.53); HEMATOCRIT 25.8 % (40.0-51.0); HEMOGLOBIN 8.7 g/dL (13.6-17.8); IMMATURE GRANULOCYTES 0.4 %; IMMATURE GRANULOCYTES ABSOLUTE 0.02 10/3/uL (0.0-0.11); INTERNATIONAL NORMAL RATI 1.8 UNITS (-); LYMPHOCYTES 20.2 %; LYMPHOCYTES ABSOLUTE 0.95 10/3/uL (0.67-4.30); MEAN CORPUS HGB CONC 33.7 g/dL (32.0-36.0); MEAN PLATELET VOLUME 9.9 fL (9.2-13.0); MONOCYTES 15.7 %; MONOCYTES ABSOLUTE 0.74 10/3/uL (0.21-1.20); NEUTROPHILS 60.1 %; NEUTROPHILS ABSOLUTE 2.83 10/3/uL (2.02-8.40); PLATELET COUNT 348 10/3/uL (150-400); RBC DISTRIBUTION WIDTH 14.5 % (12.0-16.0); WHITE BLOOD CELLS 4.7 10/3/uL (4.5-10.5)
[2016-12-02 05:49] LABS: PARTIAL THROMBO TIME 104.1 SEC (22.5-37.2)
[2016-12-02 05:53] LABS: MANUAL DIFF NO %
[2016-12-02 05:55] LABS: PROTIME (NOT ORD) 20.5 SEC (12.0-14.5)
[2016-12-03 03:20] LABS: BASOPHILS 0.5 %; BASOPHILS ABSOLUTE 0.02 10/3/uL (0.0-0.16); EOSINOPHILS ABSOLUTE 0.13 10/3/uL (0.0-0.53); HEMATOCRIT 24.9 % (40.0-51.0); HEMOGLOBIN 8.3 g/dL (13.6-17.8); IMMATURE GRANULOCYTES 0.5 %; IMMATURE GRANULOCYTES ABSOLUTE 0.02 10/3/uL (0.0-0.11); LYMPHOCYTES 24.8 %; LYMPHOCYTES ABSOLUTE 1.07 10/3/uL (0.67-4.30); MEAN CORPUS HGB CONC 33.3 g/dL (32.0-36.0); MEAN CORPUSCULAR HEMOGLOB 30.1 pg (26.0-34.0); MEAN CORPUSCULAR VOLUME 90.2 fL (80-100); MONOCYTES 11.8 %; MONOCYTES ABSOLUTE 0.51 10/3/uL (0.21-1.20); NEUTROPHILS 59.4 %; NEUTROPHILS ABSOLUTE 2.56 10/3/uL (2.02-8.40); PLATELET COUNT 337 10/3/uL (150-400); RBC DISTRIBUTION WIDTH 14.6 % (12.0-16.0); RED CELL COUNT 2.76 10/6/uL (4.7-6.1); WHITE BLOOD CELLS 4.3 10/3/uL (4.5-10.5)
[2016-12-03 03:21] LABS: MANUAL DIFF NO %
[2016-12-03 03:28] LABS: PROTIME (NOT ORD) 22.1 SEC (12.0-14.5)
[2016-12-03 03:30] LABS: PARTIAL THROMBO TIME 106.2 SEC (22.5-37.2)
[2016-12-03 17:01] LABS: PARTIAL THROMBO TIME 149.7 SEC (22.5-37.2)
[2016-12-03 19:08] LABS: INTERNATIONAL NORMAL RATI 2.3 UNITS (-); PROTIME (NOT ORD) 24.8 SEC (12.0-14.5)
[2016-12-04 08:23] LABS: INTERNATIONAL NORMAL RATI 2.2 UNITS (-); PROTIME (NOT ORD) 23.9 SEC (12.0-14.5)
[2016-12-04] MEDS ORDERED: PCET PO (10:16)
== END 2016-12-04 11:16 | disposition home or self-care (01) | DRG 329 ==
LOC: 5SO 09:13 → MIC 11-24 17:09 → 5SO 11-28 17:05
PROVIDERS: Colon & Rectal Surgery; Internal Medicine Cardiovascular Disease; Internal Medicine Nephrology; Otolaryngology; Specialist
PROC: 0DN84ZZ Release Small Intestine, Percutaneous Endoscopic Approach (ICD-10-PCS; 2016-11-22)
PROC: 3E0T3CZ (ICD-10-PCS; 2016-11-22)
PROC: 0DBM4ZZ Excision of Descending Colon, Percutaneous Endoscopic Approach (ICD-10-PCS; principal; 2016-11-22 12:45)
PROC: 30233N1 Transfusion of Nonautologous Red Blood Cells into Peripheral Vein, Percutaneous Approach (ICD-10-PCS; 2016-11-24)
PROC: 0D980ZZ Drainage of Small Intestine, Open Approach (ICD-10-PCS; 2016-11-25)
PROC: 0DL80ZZ Occlusion of Small Intestine, Open Approach (ICD-10-PCS; 2016-11-25)
PROC: 30233K1 Transfusion of Nonautologous Frozen Plasma into Peripheral Vein, Percutaneous Approach (ICD-10-PCS; 2016-11-25)
DX: Z43.3 Encounter for attention to colostomy (principal); N17.0 Acute kidney failure with tubular necrosis; J96.01 Acute respiratory failure with hypoxia; J81.0 Acute pulmonary edema; D62 Acute posthemorrhagic anemia; K91.840 Postprocedural hemorrhage of a digestive system organ or structure following a digestive system procedure; R57.9 Shock, unspecified; Z95.2 Presence of prosthetic heart valve; Z90.49 Acquired absence of other specified parts of digestive tract; Z98.890 Other specified postprocedural states; Z79.01 Long term (current) use of anticoagulants
CPT/HCPCS: 36415; 71010; 71035; 74000; 74176; 80048; 80053; 80069; 82043; 82330; 82570; 82803; 82947; 83735; 84100; 84132; 84145; 84295; 84300; 85014; 85018; 85025; 85610; 85730; 86850; 86900; 86901; 86920; 87641; 93005; A9270-GY; C1751; C1769; J0290; J0330; J0690; J1170; J1580; J1940; J2250; J2270; J2370; J2405; J2550; J2710; J2765; J2795; J3010; P9016; P9045; P9059